=== PATIENT | female | born 1965 | race Caucasian/White ===

== ENCOUNTER → 2017-05-25 09:30 | Outpatient (CLI) | payer BC, SELFPAY ==
[2017-05-25 10:06] LABS: Amphetamine Urine VISTA NEGATIVE (<1000 ng/mL); Barbiturate Urine VISTA NEGATIVE (< 200 ng/mL); Benzodiazepine Urine VISTA NEGATIVE (< 200 ng/mL); Cocaine Urine VISTA NEGATIVE (< 300 ng/mL); Ecstacy Urine VISTA NEGATIVE (< 500 ng/mL); Methadone Urine VISTA NEGATIVE (< 300 ng/mL); PCP Urine VISTA NEGATIVE (< 25 ng/mL); THC Urine VISTA NEGATIVE (< 50 ng/mL); Vista UDS pH Range 5
== END ==
PROVIDERS: Family Provider Physician Assistant; PCP Physician Assistant; Visit Provider Anesthesiology Pain Medicine
DX: F11.20 Opioid dependence, uncomplicated (principal)
CPT/HCPCS: 80307

== ENCOUNTER 2017-12-16 09:06 | Inpatient (IN) | payer BC, SELFPAY ==
[2017-12-16] VITALS (12 sets, daily range): BP systolic 109–144; BP diastolic 70–106; PULSE 69–130; RESP 16–22; TEMP 36.6–36.7; O2SAT 95–99; BMI 44.6
--- NOTE | 2017-12-16 09:12 | ED.RN ---
PT PRE -REGISTERED. HEART RATE NOTED. PT TAKEN TO ROOM 6 EKG CALLED. THIS RN THEN COMPLETED TRIAGE INFORMATION
--- NOTE | 2017-12-16 09:23 | ED.DCSUM_ITS ---
- ER Visit Summary Date of Service: 12/16/17 Chief Complaint: Palpitations History of Present Illness: The patient is a 52 F 3 of A. fib, diet-controlled diabetes, hypertension, high cholesterol, chronic low back pain. Patient states she started having what she thought was palpitations around 3 AM. This continued and came in to the ER to be evaluated. She is having mild left-sided chest pain and mild shortness of breath. Physical Examination: Vital signs are stable except for heart rate is irregular in the 140s on the monitor looks like A. fib with RVR. Blood pressure 144/103. HEENT exam unremarkable. Neck nontender. Lungs clear to auscultation bilaterally. Heart irregularly irregular rate in 140s. Consistent with A. fib. No murmur. Abdomen soft nontender. She is moving all 4 extremities. They are neurovascularly intact. Calves are nontender without edema or cords. Neurologically she is awake alert with no focal motor deficits. He Test Results: CBC normal. BMP unremarkable with a normal troponin normal. Chest x-ray portable one review read both by the radiologist and myself shows no acute abnormality. EKG shows A. fib with RVR with a heart rate of 1 2. Emergency Department Course and Treatment: Patient with recurrent A. fib with RVR. Will be treated with IV labetalol. Treatment Plan: Patient treated with a second dose all. Her heart rates improving. She is also given pain medication for her chronic back pain. Disposition: Admit Impression: Recurrent atrial fibrillation with RVR History of diet-controlled diabetes, hypertension, high cholesterol\ Acute on chronic back pain This note was generated with [employer] ([employer]) dictation software. It may contain incorrect words, spelling, and punctuation that were not noted in review of the chart prior to signing ED Disposition - Plan for ED Patient: Chief Complaint: Palpitations Referrals: Sharmila Abrams PA [Primary Care Provider] -
[2017-12-16 09:50] LABS: Absolute Lymphocyte Count 6.48 X10^3/ul (0.83-4.51); Absolute Neutrophil Count 7.7 X10^3/uL (2.0-7.7); Basophil# 0.02 X10^3/uL; Basophil% 0.1 % (0-1); Eosinophil# 0.08 X10^3/uL; Eosinophils% 0.5 % (0-5); Hematocrit 45.5 % (37-47); Hemoglobin 14.6 g/dl (12.0-15.0); Lymphocyte # 6.48 X10^3/ul (4.0); Lymphocyte % 43.3 % (19-41); Mean Corp Hgb Conc 32.1 g/gl (32-36); Mean Corpuscular Hgb 27.9 pg (27.0-32.0); Mean Platelet Vol. 10.6 fl (6.2-12.0); Monocyte% 4.7 % (0-10); Neutrophil # 7.65 X10^3/uL (2.7-7.7); Neutrophil % 51.1 % (47-70); Platelet Count 320 K/mm3 (150-450); RBC Distribution Width CV 15.1 % (11.6-14.6); Red Blood Count 5.23 M/mm3 (4.2-5.4)
[2017-12-16 09:54] LABS: Differential Indicated SCAN CRITERIA MET; POSITIVE COUNT NO; POSITIVE DIFFERENTIAL YES; POSITIVE MORPHOLOGY NO
[2017-12-16 10:00] LABS: Anion Gap 7 (5-15); BUN 10 mg/dL (7-18); BUN/Creat Ratio 13.2 RATIO (10-20); Calcium,Total 9.4 mg/dL (8.5-10.1); Chloride 111 mmol/L (98-107); Creatinine, Serum 0.76 mg/dL (0.55-1.02); EST Glomerular Filtration Rate 86 mL/min (>60); Est Glom Filt Rate - Afr Amer 104 mL/min (>60); Estimated Creatinine Clearance 70.04 ml/min; Glucose 142 mg/dL (74-106); Potassium 3.6 mmol/L (3.5-5.1); Sodium Level 143 mmol/L (136-145)
[2017-12-16 10:14] LABS: Reactive Lymphocyte RARE
--- NOTE | 2017-12-16 10:49 | PCM.HP.STD ---
Problem List (1) A-fib Status: Acute Qualifiers: Atrial fibrillation type: paroxysmal Qualified Code(s): I48.0 - Paroxysmal atrial fibrillation (2) Hypertension Status: Chronic (3) DM type 2 (diabetes mellitus, type 2) Status: Acute Qualifiers: Diabetes mellitus half-way insulin use: without terminal supervisor use Diabetes mellitus complication status: with unspecified complications Qualified Code(s): E11.8 - Type 2 diabetes mellitus with unspecified complications (4) Chronic back pain Status: Chronic Qualifiers: Back pain location: low back pain Back pain laterality: bilateral Sciatica laterality: bilateral sciatica History of Present Illness Date of Admission: 12/16/17 Chief Complaint: Palpitations - 1 day The patient is a 52 year old F with past medical history of hypertension, paroxysmal atrial fibrillation, on Eliquis, hyperlipidemia, type II DM, chronic back pain with sciatica, follows with Dr. Flor in the outpatient who comes in with complaints of palpitations ongoing since this morning. Patient had noticed that her heart was racing. She was recently hospitalized in [facility] with A. fib with RVR and has been following up with cardiology and pulmonary. This felt very much like what happened to her in May 2017, she was diagnosed with A. fib. She had associated some chest discomfort, denied any dizziness but had shortness of breath on exertion. Denied any leg swelling orthopnea or PND. EKG done in the ED showed A. fib with RVR, vitals were stable. Labs were unremarkable except for elevated WBC count. Past Medical History Past Medical History (Chronic Problems): Chronic Problems Hypertension (Chronic) Chronic back pain (Chronic) Allergies latex Allergy (Verified 12/16/17 09:11) Anaphylaxis Home Medications: Ambulatory Orders Medication Instructions Recorded Losartan Potassium [Cozaar] 25 mg PO QHS 07/13/13 Albuterol Inhaler [Ventolin Hfa 1 - 2 puff INHALATION Q4H PRN PRN 12/16/17 (SP)] Apixaban [Eliquis] 5 mg PO BID 12/16/17 Atorvastatin Calcium 80 mg PO QHS 12/16/17 Budesonide/Formoterol 160/4.5 2 puff INHALATION DAILY 12/16/17 [Symbicort 160/4.5 Mcg Inhaler (SP)] Bupropion HCl [Wellbutrin Sr] 100 mg PO BID 12/16/17 Lorazepam [Ativan] 1 mg PO PRN PRN 12/16/17 Metoprolol Succinate [Toprol Xl] 25 mg PO DAILY 12/16/17 Pantoprazole Sodium [Protonix] 40 mg PO DAILY 12/16/17 Promethazine HCl 25 mg PO Q6H PRN PRN 12/16/17 Surgical History: appendectomy, hysterectomy, tonsillectomy, - - s/p 2 CS Psychiatric History: Anxiety, Depression [employer] History: ovarian cysts Lives: With Family Smoking Status: Current every day smoker Tobacco Use: Cigarettes Alcohol: None Drugs: None - *Family History Maternal History Items: Hypertension Paternal History Items: Diabetes, Heart Disease - had pacemaker, Hypertension Sibling History Items: Diabetes Review of Systems Constitutional: Denies: Anorexia, Chills, Fever, Weakness, Weight Change Eyes: Denies: Blurred vision, Cataracts, Conjunctivae Inflammation, Double vision HEENT: Denies: Difficulty Hearing, Difficulty Swallowing, Head Aches, Hearing Changes, Nasal bleeding, Nasal Congestion, Sinus Congestion, Sinus Drainage Cardiovascular: Reports: Chest Pain - in a certain spot, stabbing, Chest Tightness, Heaviness, Light Headedness. Denies: Claudication, Chest Pressure, Palpitations Respiratory: Reports: Cough, Shortness of breath at rest, Shortness of breath upon exertion. Denies: Hemoptysis, Sputum production Gastrointestinal: Reports: Nausea. Denies: Abdominal Pain, Constipation, Hematemesis, Hematochezia, Vomiting Genitourinary: Denies: Dysuria, Frequency, Incontinence Gynecological: Reports: - - postmenopausal. Denies: Breast symptoms Musculoskeletal: Reports: Joint stiffness, Joint swelling. Denies: Joint Pain, Joint Tenderness Skin: Denies: Rash, Wounds Neurological: Denies: Difficulty swallowing, Focal weakness, Numbness, Tingling Psychiatric: Denies: Anxiety, Depression, Homicidal Ideations, Suicidal Ideations Endocrine: Denies: Change in Body Habitus Hematologic/ Lymphatic: Denies: Easy Bruising, Easy Bleeding VTE Information - Inpt Only VTE Present on Admission: No VTE Pharm Prophylaxis ordered?: Yes Patient Problems: Active and Suspected Problems A-fib (Acute) DM type 2 (diabetes mellitus, type 2) (Acute) - Physical Exam General: Alert, Oriented x3, Cooperative, No apparent distress HEENT: Atraumatic, PERRLA, EOMI, Normocephalic Neck: Supple, No JVD, Negative Carotid Bruits Lungs: Clear to auscultation, Normal air movement Cardiovascular: Regular rate, Normal S1, No murmurs, Irregular Rate Abdomen: Bowel Sounds Present, Soft, Non Tender, Non-Distended, No Hepato-splenomegaly Extremities: No edema Skin: No rashes, No breakdown Musculoskeletal: No Tenderness to Palpation of Joints or Extremities Lymphatic: No Cervical, Supraclavicular, or Inguinal Adenopathy Neurological: Cranial nerves II-XII grossly intact, Neuro grossly intact Psych/Mental Status: Normal Affect, Appropriate Vital Signs Temp Pulse Resp BP Pulse Ox 98 F 119 H 16 128/94 H 99 12/16/17 09:09 12/16/17 09:24 12/16/17 09:24 12/16/17 09:24 12/16/17 09:24 Oxygen Flow Rate (L/min) 2 Oxygen Delivery Method Nasal Cannula Weight: 110.677 kg Body Mass Index (BMI) 44.6 Laboratory Tests Past 24 Hrs 12/16/17 12/16/17 09:30 09:30 WBC 15.0 H RBC 5.23 Hgb 14.6 Hct 45.5 MCV 87.0 MCH 27.9 MCHC 32.1 RDW 15.1 H RDW Differential 48.0 H Plt Count 320 MPV 10.6 Immature Gran % (Auto) 0.300 Neut % (Auto) 51.1 Lymph % (Auto) 43.3 H [place] % (Auto) 4.7 Eos % (Auto) 0.5 Baso % (Auto) 0.1 Absolute Neuts (auto) 7.7 Absolute Lymphs (auto) 6.48 H Total Counted Not Reportable Reactive Lymphocytes RARE Sodium 143 Potassium 3.6 Chloride 111 H Carbon Dioxide 25.0 Anion Gap 7 BUN 10 Creatinine 0.76 Estim Creat Clear Calc 70.04 Est GFR (MDRD) Af Amer 104 Est GFR (MDRD) Non-Af 86 BUN/Creatinine Ratio 13.2 Glucose 142 H Calcium 9.4 Troponin I < 0.015 Assessment/Plan All Active Problems A-fib (Acute) DM type 2 (diabetes mellitus, type 2) (Acute) 52 year old F with past medical history of hypertension, paroxysmal atrial fibrillation, on Eliquis, hyperlipidemia, type II DM, chronic back pain with sciatica, follows with Dr. Flor in the outpatient who comes in with complaints of palpitations ongoing since this morning. 1. A. fib with RVR patient with history of paroxysmal atrial fibrillation, on metoprolol 25 mg p.o. twice daily, given labetalol in the ED, Plan: Admit to PCU, continue on metoprolol, 50 mg p.o. twice daily, monitor on telemetry, obtain records of recent 2D echo, continue on Eliquis 2. Hypertension, controlled, continue home regimen 3. Type II DM, diet controlled, will put on insulin sliding scale with Accu-Cheks 4. Morbid obesity, BMI 44.6, diet exercise recommended 5. Acute on chronic low back pain, follows with Dr. Flor in the outpatient, will continue on oxycodone and morphine as needed 6. DVT prophylaxis -on Eliquis Code Visit OBSV E&M: 05711 Initial observation care L3
[2017-12-16] MEDS: HYDROmorphone 1 MG/ML Syringe IV ×2 (11:07→23:38)
[2017-12-16] MEDS: oxyCODONE 5 MG Tablet PO ×3 (11:56→20:43)
[2017-12-16] MEDS: Famotidine 20 MG Tablet PO (11:57)
[2017-12-16] MEDS: Metoprolol(XL)Succ 25 MG Tablet PO (12:40)
[2017-12-16 12:59] LABS: Thyroid Stim Hormone (TSH) 1.81 uIU/mL (0.358-3.74)
[2017-12-16] MEDS: Morphine 2 MG/ML Syringe 1 MG IV ×2 (14:18→18:14)
[2017-12-16] MEDS: 0.9% NaCl Peripheral Flush Adult/Peds IV ×4 (14:18→23:38)
[2017-12-16 16:31] LABS: Bedside Glucose 193 mg/dL (70-110)
[2017-12-16] MEDS: Insulin Lispro 100 UNIT/ML INSULN.PEN SQ (16:36)
[2017-12-16] MEDS: Ondansetron 4 MG/2 ML Vial IV (16:36)
[2017-12-16] MEDS: Budesonide Respules 0.5 MG/2 ML AMPUL.NEB. INHALATION (21:02)
[2017-12-16] MEDS: Atorvastatin Calcium 80 MG Tablet PO (21:46)
[2017-12-16] MEDS: buPROPion (SR) 100 MG TABLET.SA PO (21:46)
[2017-12-16] MEDS: Losartan Potassium 25 MG Tablet PO (21:46)
[2017-12-16] MEDS: APIXABAN 5 MG TABLET PO (21:46)
[2017-12-16 21:51] LABS: Bedside Glucose 114 mg/dL (70-110)
[2017-12-17] VITALS (8 sets, daily range): BP systolic 90–110; BP diastolic 64–72; PULSE 70–109; RESP 16–18; TEMP 36.6–36.7; O2SAT 95–97
[2017-12-17] MEDS: HYDROmorphone 1 MG/ML Syringe IV ×2 (03:12→09:20)
[2017-12-17] MEDS: 0.9% NaCl Peripheral Flush Adult/Peds IV (03:12)
[2017-12-17 06:57] LABS: BUN 13 mg/dL (7-18); Creatinine, Serum 0.85 mg/dL (0.55-1.02); Estimated Creatinine Clearance 62.62 ml/min; Glucose 144 mg/dL (74-106)
[2017-12-17 06:58] LABS: Anion Gap 13 (5-15); BUN/Creat Ratio 15.3 RATIO (10-20); Chloride 110 mmol/L (98-107); Cholesterol 165 mg/dL (200); EST Glomerular Filtration Rate 75 mL/min (>60); Est Glom Filt Rate - Afr Amer 91 mL/min (>60); High Density Lipoprotein 29 mg/dL; Potassium 4.2 mmol/L (3.5-5.1); Sodium Level 144 mmol/L (136-145); Triglycerides 281 mg/dL; Very Low Density Lipoprotein 56 mg/dL (5-40)
[2017-12-17 07:00] LABS: Bedside Glucose 154 mg/dL (70-110)
[2017-12-17] MEDS: Budesonide Respules 0.5 MG/2 ML AMPUL.NEB. INHALATION (07:25)
[2017-12-17] MEDS: APIXABAN 5 MG TABLET PO (08:08)
[2017-12-17] MEDS: Aspirin 81 MG TAB.CHEW PO (08:08)
[2017-12-17] MEDS: buPROPion (SR) 100 MG TABLET.SA PO (08:09)
[2017-12-17] MEDS: Pantoprazole Sodium 40 MG Tablet PO (08:09)
[2017-12-17 10:25] LABS: Hemoglobin A1c 6.7 % (4.2-6.3)
[2017-12-17] MEDS: Metoprolol(XL)Succ 50 MG Tablet PO (10:27)
[2017-12-17 11:30] LABS: Bedside Glucose 143 mg/dL (70-110)
--- NOTE | 2017-12-17 11:38 | PCM.DC ---
- Discharge Diagnoses Current Active Problems: Current Active and Chronic Problems A-fib (Acute) Hypertension (Chronic) DM type 2 (diabetes mellitus, type 2) (Acute) Chronic back pain (Chronic) Reason(s) for Visit for Discharge Instructions: Palpitations You will use the following diet at home:: Calorie/Carbohydrate Controlled (specify 1200, 1400, etc), Cardiac Your food should be the consistency of: Regular Your liquids should be the consistency of: Regular/Thin Discharge Activity: Return to Normal Activity Additional Instructions: Note the change to your metoprolol. Continue to use your breathing treatments. You are encouraged to complete your antibiotics as prescribed for bronchitis. Continue to use your incentive spirometer every 1-2 hours as needed. Allergies/Adverse Reactions: Allergies latex Allergy (Verified 12/16/17 09:11) Anaphylaxis Medications to take at Discharge Losartan Potassium [Cozaar] 25 mg PO QHS 07/13/13 Albuterol Inhaler [Ventolin Hfa] 1 - 2 puff INHALATION Q4H PRN PRN 12/16/17 Apixaban [Eliquis] 5 mg PO BID 12/16/17 Atorvastatin Calcium 80 mg PO QHS 12/16/17 Budesonide/Formoterol 160/4.5 [Symbicort 160/4.5 Mcg Inhaler (SP)] 2 puff INHALATION DAILY 12/16/17 Bupropion HCl [Wellbutrin Sr] 100 mg PO BID 12/16/17 Lorazepam [Ativan] 1 mg PO PRN PRN 12/16/17 Pantoprazole Sodium [Protonix] 40 mg PO DAILY 12/16/17 Promethazine HCl 25 mg PO Q6H PRN PRN 12/16/17 Metoprolol(XL)Succ [Toprol Xl (Beta Roxana)] 50 mg PO DAILY #30 tab 12/17/17 The following prescriptions were given: Metoprolol(XL)Succ [Toprol Xl (Beta Roxana)] 50 mg PO DAILY #30 tab Primary Care Physician: Sharmila Abrams PA [Primary Care Provider] - Please follow up with your Primary Care Physician in: within 2 weeks Test Results: Test results from this visit will be discussed in further detail at your follow-up appointment, if applicable. When: Follow-up with your motorcoach driver as scheduled Proposed Discharge Date: 12/17/17
--- NOTE | 2017-12-17 11:47 | CASEMGMT ---
Face to Face with patient for initial transition planning/care coordination assessment. ERIC FRIED introduced self and role at [facility], pt voices understanding and consents to assessment at this time. Pt is sitting up in bed in no distress at this time. Pt is A/O x4 at this time and answers all questions appropriately at this time. Care providers, pharmacy, and demographics verified. See attached link. Pt voices no further concerns/needs at this time. Advised pt to ask for CM if any further questions/concerns/needs arise, voice understanding. PLAN: [place] ERIC FRIED
--- NOTE | 2017-12-17 16:02 | PCM.DC.SUM ---
<Jimmie Anne - Last Filed: 12/17/17 16:02> Discharge Date and Diagnosis Date of Admission: 12/16/17 Date of Discharge: 12/17/17 - Primary Discharge Diagnosis Paroxysmal Afib with RVR HTN HLD Asthma Morbid obesity T2DM Acute on chronic low back pain - Secondary Discharge Diagnosis Chronic Problems Hypertension (Chronic) Chronic back pain (Chronic) Hospital Course and Treatment Imaging Results: RAD/Chest 1 View (Portable) IMPRESSION: No acute abnormality is seen. Operations: None Procedures: None Summary of Care Provided: Physical exam on day of discharge: General: Resting comfortably NAD Psych: A/Ox3 normal affect HEENT: PEARRLA AT ND Neck: Supple NT CV: RRR no m/t/r/g/h Resp: Right lower retana, faint rales Abd: [id number] Soft NT no guarding or rigidity, morbidly obese Ext: DP2+= no edema Skin: W/D normal turgor Lymph/Heme: No active bleeding or adenopathy Neuro: CN2-12 intact Hospital course: The patient is a 52 year old F with a hx of paroxysmal Afib on toprol and eliquis, seen by [place] [facility]ology, recently dx'd with acute bronchitis and has not started outpatient therapy, also with a hx of DMt2, chronic back pain, htn, morbid obesity, who was recently hospitalized for Afib with RVR at [email or web address], who subsequently presented to the ER with palpitations for 1 day. She was found to be in Afib with RVR which was successfully converted with lebatolol. Her toprol was increased to 50 and she was admitted to the PCU on tele. Eliquis was continued. TSH was normal. Troponin was negative. She remained stable overnight and was discharged the following morning to follow up with her provider contracting consultant in 1 week.She will continue the toprol at 50 mg qd. She had also failed to fill her z pack for bronchitis 2 days prior. With white count and faint rales on exam RLL (CXR neg) we advised filling and completing this treatment as infection could possibly explain the episode of RVR. She was advised to also f/u with her PCP. Shhe was DC'd home in stable condition. This patient was seen by Jimmie Anne PA-C under the supervision of Doctor Thompson. [] Discharge Diet: Low fat/ Low Cholesterol, 1800 Calorie Control Diet, 2000 mg Sodium Diet Discharge Activity: Return to Normal Activity Home Medications: Medications to take at Discharge Losartan Potassium [Cozaar] 25 mg PO QHS 07/13/13 Albuterol Inhaler [Ventolin Hfa] 1 - 2 puff INHALATION Q4H PRN PRN 12/16/17 Apixaban [Eliquis] 5 mg PO BID 12/16/17 Atorvastatin Calcium 80 mg PO QHS 12/16/17 Budesonide/Formoterol 160/4.5 [Symbicort 160/4.5 Mcg Inhaler (SP)] 2 puff INHALATION DAILY 12/16/17 Bupropion HCl [Wellbutrin Sr] 100 mg PO BID 12/16/17 Lorazepam [Ativan] 1 mg PO PRN PRN 12/16/17 Pantoprazole Sodium [Protonix] 40 mg PO DAILY 12/16/17 Promethazine HCl 25 mg PO Q6H PRN PRN 12/16/17 Metoprolol(XL)Succ [Toprol Xl (Beta Roxana)] 50 mg PO DAILY #30 tab 12/17/17 Following Prescrptions Were Given to Patient: Metoprolol(XL)Succ [Toprol Xl (Beta Roxana)] 50 mg PO DAILY #30 tab Primary Care Physician: Sharmila Abrams PA [Primary Care Provider] - Please follow up with your Primary Care Physician in: within 2 weeks When: Follow-up with your provider contracting consultant as scheduled Disposition: Home Minutes spent on discharge:: 35 Patient Condition:: Stable Medical Necessity - Tobacco Use Smoking Status: Current every day smoker Tobacco Use: Cigarettes Meaningful Use Info Meaningful Use Diagnoses (Choose all that apply): None applicable <Xena Thompson - Last Filed: 12/17/17 17:27> Discharge Date and Diagnosis - Secondary Discharge Diagnosis Chronic Problems Hypertension (Chronic) Chronic back pain (Chronic) Hospital Course and Treatment Summary of Care Provided: The patient is a 52 year old F [] Code Visit Inpatient E&M: 04627 Disch Hosp
== END 2017-12-17 12:37 | disposition home or self-care (01) | DRG 309 ==
LOC: ED 09:32 → PCU 10:55
PROVIDERS: Physician Assistant; Admitting Provider Internal Medicine; Emergency Provider Emergency Medicine; Family Provider Physician Assistant; PCP Physician Assistant; Visit Provider Internal Medicine
DX: I48.0 Paroxysmal atrial fibrillation (principal); Z68.41 Body mass index [BMI] 40.0-44.9, adult; Z79.01 Long term (current) use of anticoagulants; I10 Essential (primary) hypertension; E78.5 Hyperlipidemia, unspecified; J45.909 Unspecified asthma, uncomplicated; E66.01 Morbid (severe) obesity due to excess calories; E11.9 Type 2 diabetes mellitus without complications; G89.29 Other chronic pain; M54.5 Low back pain; F17.210 Nicotine dependence, cigarettes, uncomplicated
CPT/HCPCS: 36415; 71045; 80048; 80061; 82962; 83036; 84443; 84484; 85025; 93005; 94640; 99285; 99406; A4216; J2405

== ENCOUNTER → 2018-02-15 11:46 | Outpatient (CLI) | payer BC, SELFPAY ==
[2018-02-15 14:28] LABS: Amphetamine Urine VISTA NEGATIVE (<1000 ng/mL); Barbiturate Urine VISTA NEGATIVE (< 200 ng/mL); Benzodiazepine Urine VISTA NEGATIVE (< 200 ng/mL); Cocaine Urine VISTA NEGATIVE (< 300 ng/mL); Ecstacy Urine VISTA POSITIVE (< 500 ng/mL); Methadone Urine VISTA NEGATIVE (< 300 ng/mL); PCP Urine VISTA NEGATIVE (< 25 ng/mL); THC Urine VISTA NEGATIVE (< 50 ng/mL); Vista UDS pH Range 5
== END ==
PROVIDERS: Family Provider Physician Assistant; PCP Physician Assistant; Referring Provider Anesthesiology Pain Medicine; Visit Provider Anesthesiology Pain Medicine
DX: F11.20 Opioid dependence, uncomplicated (principal)
CPT/HCPCS: 80307

== ENCOUNTER → 2018-06-07 12:41 | Outpatient (CLI) | payer BC, SELFPAY ==
[2018-06-07 14:52] LABS: Amphetamine Urine VISTA NEGATIVE (<1000 ng/mL); Barbiturate Urine VISTA NEGATIVE (< 200 ng/mL); Benzodiazepine Urine VISTA NEGATIVE (< 200 ng/mL); Cocaine Urine VISTA NEGATIVE (< 300 ng/mL); Ecstacy Urine VISTA NEGATIVE (< 500 ng/mL); Methadone Urine VISTA NEGATIVE (< 300 ng/mL); PCP Urine VISTA NEGATIVE (< 25 ng/mL); THC Urine VISTA NEGATIVE (< 50 ng/mL); Vista UDS pH Range 5
== END ==
PROVIDERS: Family Provider Physician Assistant; PCP Physician Assistant; Referring Provider Anesthesiology Pain Medicine; Visit Provider Anesthesiology Pain Medicine
DX: F11.20 Opioid dependence, uncomplicated (principal)
CPT/HCPCS: 80307

== ENCOUNTER → 2018-07-26 10:28 | Outpatient (CLI) | payer BC, SELFPAY ==
[2017-12-16 11:31] VITALS: BMI 44.6
[2018-07-26 12:47] LABS: ALB/GLOB Ratio 0.9 RATIO (0.9-2.4); AST(SGOT) 16 U/L (15-37); Alanine Aminotransfer ALT/SGPT 26 U/L (13-56); Albumin, Serum 3.6 g/dL (3.2-5.0); Alkaline Phosphatase 113 U/L (45-117); Anion Gap 9 (5-15); BUN 13 mg/dL (7-18); BUN/Creat Ratio 17.2 RATIO (10-20); Calcium,Total 9.4 mg/dL (8.5-10.1); Chloride 104 mmol/L (98-107); Creatinine, Serum 0.76 mg/dL (0.55-1.02); EST Glomerular Filtration Rate 86 mL/min (>60); Est Glom Filt Rate - Afr Amer 104 mL/min (>60); Globulin 3.9 g/dL (2.2-4.2); Glucose 135 mg/dL (74-106); Potassium 4.1 mmol/L (3.5-5.1); Protein, Total 7.5 g/dL (6.4-8.2); Sodium Level 138 mmol/L (136-145)
[2018-07-26 13:54] LABS: Absolute Neutrophil Count 7.6 X10^3/uL (2.0-7.7); Basophil# 0.01 X10^3/uL; Basophil% 0.1 % (0-1); Eosinophil# 0.06 X10^3/uL; Eosinophils% 0.5 % (0-5); Hematocrit 43.6 % (37-47); Hemoglobin 14.1 g/dl (12.0-15.0); Lymphocyte % 31.7 % (19-41); Mean Corp Hgb Conc 32.3 g/gl (32-36); Mean Corpuscular Hgb 28.4 pg (27.0-32.0); Mean Corpuscular Volume 87.7 fL (81-99); Mean Platelet Vol. 10.9 fl (6.2-12.0); Monocyte# 0.69 X10^3/uL; Monocyte% 5.6 % (0-10); Neutrophil # 7.58 X10^3/uL (2.7-7.7); Neutrophil % 61.7 % (47-70); Platelet Count 337 K/mm3 (150-450); RBC Distribution Width CV 15.4 % (11.6-14.6); RBC Distribution Width SD 48.9 fl (35.1-43.9); Red Blood Count 4.97 M/mm3 (4.2-5.4); White Blood Count 12.3 K/mm3 (4.4-11.0)
[2018-07-26 14:13] LABS: POSITIVE COUNT NO; POSITIVE DIFFERENTIAL NO; POSITIVE MORPHOLOGY NO
== END ==
PROVIDERS: Family Provider Physician Assistant; PCP Physician Assistant; Referring Provider Internal Medicine Rheumatology; Visit Provider Internal Medicine Rheumatology
DX: M06.4 Inflammatory polyarthropathy (principal); M79.7 Fibromyalgia; K21.9 Gastro-esophageal reflux disease without esophagitis; F41.9 Anxiety disorder, unspecified; F32.89 Other specified depressive episodes; I48.91 Unspecified atrial fibrillation; J45.909 Unspecified asthma, uncomplicated; I10 Essential (primary) hypertension; E78.5 Hyperlipidemia, unspecified; G47.33 Obstructive sleep apnea (adult) (pediatric); Z79.899 Other long term (current) drug therapy
CPT/HCPCS: 36415; 80053; 85025

== ENCOUNTER → 2019-01-03 10:14 | Outpatient (CLI) | payer BC, SELFPAY ==
[2017-12-16 11:31] VITALS: BMI 44.6
[2019-01-03 12:27] LABS: Absolute Lymphocyte Count 4.43 X10^3/uL (0.83-4.51); Absolute Neutrophil Count 6.5 X10^3/uL (2.0-7.7); Basophil# 0.03 X10^3/uL; Basophil% 0.3 % (0-1); Eosinophil# 0.12 X10^3/uL; Hematocrit 47.3 % (37-47); Hemoglobin 14.9 g/dL (12.0-15.0); Lymphocyte # 4.43 X10^3/ul (4.0); Lymphocyte % 38.1 % (19-41); Mean Corp Hgb Conc 31.5 g/dL (32-36); Mean Corpuscular Hgb 29.3 pg (27.0-32.0); Mean Corpuscular Volume 92.9 fL (81-99); Mean Platelet Vol. 10.8 fl (6.2-12.0); Monocyte# 0.46 X10^3/uL; NRBC Flagged by Analyzer 0 % (0-5); Neutrophil # 6.54 X10^3/uL (2.7-7.7); Neutrophil % 56.1 % (47-70); Platelet Count 308 K/mm3 (150-450); RBC Distribution Width CV 18.2 % (11.6-14.6); RBC Distribution Width SD 60.8 fl (35.1-43.9); Red Blood Count 5.09 M/mm3 (4.2-5.4); White Blood Count 11.6 K/mm3 (4.4-11.0)
[2019-01-03 13:12] LABS: ALB/GLOB Ratio 0.9 RATIO (0.9-2.4); AST(SGOT) 18 U/L (15-37); Alanine Aminotransfer ALT/SGPT 38 U/L (13-56); Albumin, Serum 3.4 g/dL (3.2-5.0); Alkaline Phosphatase 115 U/L (45-117); Anion Gap 4 (5-15); BUN 8 mg/dL (7-18); BUN/Creat Ratio 11.3 RATIO (10-20); Calcium,Total 9.4 mg/dL (8.5-10.1); Chloride 108 mmol/L (98-107); Creatinine, Serum 0.71 mg/dL (0.55-1.02); EST Glomerular Filtration Rate 93 mL/min (>60); Est Glom Filt Rate - Afr Amer 112 mL/min (>60); Globulin 3.8 g/dL (2.2-4.2); Glucose 123 mg/dL (74-106); Potassium 4.2 mmol/L (3.5-5.1); Protein, Total 7.2 g/dL (6.4-8.2); Sodium Level 142 mmol/L (136-145)
== END ==
PROVIDERS: Family Provider Family Medicine; PCP Family Medicine; Referring Provider Internal Medicine Rheumatology; Visit Provider Internal Medicine Rheumatology
DX: M06.4 Inflammatory polyarthropathy (principal); Z79.899 Other long term (current) drug therapy; M79.7 Fibromyalgia; K21.9 Gastro-esophageal reflux disease without esophagitis; F41.9 Anxiety disorder, unspecified; F32.89 Other specified depressive episodes; I48.91 Unspecified atrial fibrillation; J45.909 Unspecified asthma, uncomplicated; I10 Essential (primary) hypertension; E78.5 Hyperlipidemia, unspecified; G47.33 Obstructive sleep apnea (adult) (pediatric)
CPT/HCPCS: 36415; 80053; 85025

== ENCOUNTER 2019-01-21 11:13 | Emergency (ER) | payer BC, SELFPAY ==
[2019-01-21 11:15] VITALS: BP 121/72; PULSE 71; RESP 16; TEMP 36.7; BMI 44.8
--- NOTE | 2019-01-21 11:39 | ED.DCSUM_ITS ---
History of Present Illness <Louis Croft - Last Filed: 01/21/19 12:47> Informant: Patient Onset: Today Narrative: Patient presents to the ED with sudden onset of nausea and vomiting that started about 2 hours ago. She states she has vomited approximately 5 times. She does have a history of chronic nausea, however nothing this severe. She has been prescribed Phenergan in the past but states she is out of her prescription. She also reports this intermittent 1 month history of right upper abdominal pain/flank pain. She denies any changes in bowels. <Keily Garcia - Last Filed: 01/21/19 13:58> Chief Complaint: Abd Pain Past Medical History <Louis Croft - Last Filed: 01/21/19 12:47> Surgical History: appendectomy, hysterectomy, tonsillectomy, - - s/p 2 CS Smoking Status: Never smoker - Family History Maternal Family History: Reports: Hypertension Paternal Family History: Reports: Diabetes, Heart Disease - had pacemaker, Hypertension Sibling Family History: Reports: Diabetes <Keily Garcia - Last Filed: 01/21/19 13:58> - Allergies and Home Meds Allergies/Adverse Reactions: Allergies latex Allergy (Verified 01/21/19 11:19) Anaphylaxis metformin Adverse Reaction (Verified 01/21/19 11:19) Diarrhea Primary Care Physician: Trenton Crowell MD [Primary Care Provider] - Physical Exam Vital Signs/Narrative: Vital Signs Temp Pulse Resp BP Pulse Ox 01/21/19 12:25 70 145/70 H 98 01/21/19 11:15 98.0 F 71 16 121/72 H <CroftLouis - Last Filed: 01/21/19 12:47> Vital Signs/Narrative: Vital Signs Temp Pulse Resp BP 01/21/19 11:15 98.0 F 71 16 121/72 H <Keily Garcia - Last Filed: 01/21/19 13:58> Diagnostic/Tx/Re-eval - Medical Decision Making This patient with our physician fleet administrative assistant. Middle-aged female with right flank pain and associated nausea and vomiting. Patient has a recurrent history of this this specific episode is been going on for more than a month. She is had several ultrasounds of her right upper q uadrant showing no abnormalities of her gallbladder and even an unremarkable HIDA scan up according to her. Exam vital signs are stable afebrile. She is in no distress. HEENT exam shows mildly dry mucous membranes. Lungs clear to auscultation. Heart regular rhythm no murmur. Abdomen is soft there is mild right upper quadrant and right flank tenderness. There is no ecchymosis or bruising. No signs of obstruction. Right lower quadrant unremarkable. No hernias or masses positive bowel sounds. Back there is mild right flank pain tenderness. She is moving all 4 extremities. Skin is unremarkable. Patient with right flank pain. She is chronically elevated white count since why she is currently seeing tank refinisher. Today's white count is 19.8. In light that she is had multiple prior ultrasounds reviewed she is a CT of the abdomen and pelvis with IV contrast. Her electrolytes, liver enzymes and lipase are all unremarkable. Impression: Right flank pain of uncertain etiology Nausea and vomiting <Louis Croft - Last Filed: 01/21/19 12:47> - Medical Decision Making She presents to the ED with right flank pain, nausea, vomiting that started today. The flank pain has been an intermittent issue for her for the last month. She appears well and nontoxic. Vital signs stable. She has had extensive work-up done of her gallbladder including multiple ultrasounds and HIDA scan. She was given IV fluids, morphine, and Phenergan for symptomatic relief. Laboratory studies including CBC, CMP, lipase, and urinalysis are unremarkable other than a leukocytosis of 19.8. She states that she does follow with a tank refinisher regarding this elevated white count. CT abdomen/pelvis with IV contrast shows no acute abnormalities. At this time, I think it is safe for the patient be discharged home. She was given a prescription for Zofran. She does have an appointment with her PCP next week. She will continue her chronic pain medicine regimen. She was educated on signs/symptoms to return to the ED. Impression: Right flank pain. Nausea and vomiting. Disposition: Home stable <Keily Garcia - Last Filed: 01/21/19 13:58> ED Disposition <Louis Croft - Last Filed: 01/21/19 12:47> <Keily Garcia - Last Filed: 01/21/19 13:58> - Plan for ED Patient: Disposition: Home or Assisted Living Diagnosis: Nausea & vomiting, Abdominal pain Instructions: ABDOMINAL PAIN, Unknown Cause, (Female), VOMITING (8y-Adult) Prescriptions: Ondansetron HCl [Zofran] 4 mg PO Q8H PRN PRN #20 tab PRN Reason: Nausea Prescription Printed Referrals: Trenton Crowell MD [Primary Care Provider] -
[2019-01-21] MEDS: Morphine 4 MG/ML Syringe IV (12:14)
[2019-01-21] MEDS: Ondansetron 4 MG/2 ML Vial IV (12:14)
[2019-01-21 12:18] LABS: ALB/GLOB Ratio 0.8 RATIO (0.9-2.4); AST(SGOT) 12 U/L (15-37); Alanine Aminotransfer ALT/SGPT 22 U/L (13-56); Albumin, Serum 3.2 g/dL (3.2-5.0); Alkaline Phosphatase 112 U/L (45-117); Anion Gap 6 (5-15); BUN 11 mg/dL (7-18); BUN/Creat Ratio 15.2 RATIO (10-20); Calcium,Total 9.5 mg/dL (8.5-10.1); Chloride 105 mmol/L (98-107); Creatinine, Serum 0.73 mg/dL (0.55-1.02); EST Glomerular Filtration Rate 90 mL/min (>60); Est Glom Filt Rate - Afr Amer 109 mL/min (>60); Estimated Creatinine Clearance 72.11 ml/min; Globulin 4.1 g/dL (2.2-4.2); Glucose 222 mg/dL (74-106); Lipase 44 U/L (73-393); Potassium 3.8 mmol/L (3.5-5.1); Protein, Total 7.3 g/dL (6.4-8.2); Sodium Level 138 mmol/L (136-145)
[2019-01-21 12:19] LABS: Absolute Lymphocyte Count 2.73 X10^3/uL (0.83-4.51); Absolute Neutrophil Count 16.3 X10^3/uL (2.0-7.7); Basophil# 0.03 X10^3/uL; Basophil% 0.2 % (0-1); Eosinophil# 0.01 X10^3/uL; Eosinophils% 0.1 % (0-5); Hemoglobin 14.4 g/dL (12.0-15.0); Lymphocyte # 2.73 X10^3/ul (4.0); Lymphocyte % 13.8 % (19-41); Mean Corpuscular Hgb 29.6 pg (27.0-32.0); Mean Corpuscular Volume 92.4 fL (81-99); Mean Platelet Vol. 10.7 fl (6.2-12.0); Monocyte# 0.62 X10^3/uL; Monocyte% 3.1 % (0-10); NRBC Flagged by Analyzer 0 % (0-5); Neutrophil # 16.28 X10^3/uL (2.7-7.7); Neutrophil % 82.1 % (47-70); Platelet Count 300 K/mm3 (150-450); RBC Distribution Width CV 16.6 % (11.6-14.6); RBC Distribution Width SD 56.3 fl (35.1-43.9); Red Blood Count 4.87 M/mm3 (4.2-5.4); White Blood Count 19.8 K/mm3 (4.4-11.0)
[2019-01-21 12:25] VITALS: BP 145/70; PULSE 70; O2SAT 98
[2019-01-21] MEDS: 0.9% Normal Saline 1,000 ML 1000 ML IV (12:25)
[2019-01-21 12:36] LABS: Bacteria 0 SEEN /hpf (None Seen); Mucous, Urine 0 SEEN /hpf (<or=2+); Red Blood Cells-Urine 0 SEEN /hpf (0-5); Squamous Epithelial Cells - UA 0 SEEN /hpf (5-10); White Blood Cells 0 SEEN /hpf (0-5)
--- NOTE | 2019-01-21 12:44 | CT_ITS ---
STUDY: CT ABDOMEN AND PELVIS WITH CONTRAST REASON FOR EXAM: Female, 53 years old. Right-sided flank pain RADIATION DOSAGE (If Supplied By Facility): CTDIvol = ( 23.71 ) mGy, DLP = ( 1212.86 ) mGycm TECHNIQUE: Transaxial images were obtained from the dome of the diaphragm to the symphysis pubis without oral contrast. IV Isovue 300 100mL was administered. Sagittal and coronal images were reconstructed. Individualized dose optimization techniques were used for this CT. COMPARISON: 2009 FINDINGS: The visualized lung bases are unremarkable. The visualized portions of the heart are within normal limits. There is decreased attenuation of the liver consistent with steatosis. Normal gallbladder and extrahepatic biliary system. Normal spleen. Normal pancreas. Normal bilateral adrenal glands. Normal right kidney. Normal left kidney. Normal visualized stomach. Normal small intestine. Normal colon. There are surgical clips in the region of the appendix consistent with a prior appendectomy. There is diffuse atherosclerotic calcification of the abdominal aorta, without a demonstrated aneurysm. Normal inferior vena cava. Normal retroperitoneum. Normal urinary bladder. Normal abdominal wall. There are diffuse degenerative changes of the visualized lumbar spine, and pelvis. CT/Abdomen/Pelvis W IV Cont ONLY IMPRESSION: Fatty liver, no discrete lesion No CT evidence of acute inflammatory process No free intraperitoneal fluid, air, or suspicious adenopathy Electronically Signed: Kolby Sparrow MD at 13:46 EDT , Service support ,
[2019-01-21 12:46] LABS: Color, Urine Yellow (Yellow); Glucose, Dipstick Normal (Normal); Ketone-Dipstick Negative (Negative); Leukocyte Esterase-Dipstick Negative /ul (Negative); Nitrite-Dipstick Negative (Negative); Occult Blood-Urine Negative /ul (Negative); Protein-Dipstick Negative (Negative); Urine Bilirubin Dipstick Negative (Negative); Urine Clarity Clear (Clear); Urine Urobilinogen Normal (Normal)
[2019-01-21 12:58] VITALS: TEMP 36.8
[2019-01-21 14:09] VITALS: BP 131/74; BP 132/70; BP 151/94; PULSE 80; PULSE 82; RESP 14; RESP 15; O2SAT 98
== END 2019-01-21 14:11 | disposition home or self-care (01) ==
PROVIDERS: Emergency Provider Physician Assistant; Family Provider Family Medicine; PCP Family Medicine
DX: R11.2 Nausea with vomiting, unspecified (principal); R10.11 Right upper quadrant pain; R10.9 Unspecified abdominal pain
CPT/HCPCS: 74177; 80053; 81001; 83690; 85025; 96361; 96374; 96375; 99285; J7030; Q9967; A4216; J2405

== ENCOUNTER → 2019-03-30 09:52 | Outpatient (CLI) | payer BC, SELFPAY ==
--- NOTE | 2019-03-30 11:50 | RAD_ITS ---
STUDY: X-RAY CHEST REASON FOR EXAM: Female, 53 years old. STARTING NEW MEDS, NO CURRENT COMPLAINTS, HX AFIB TECHNIQUE: PA and lateral views of the chest. COMPARISON: December 16, 2017 FINDINGS: The lungs are clear and expanded. There is no demonstrated pleural abnormality. Normal size heart. Normal mediastinum and itzel. Normal visualized pulmonary arteries. Normal visualized aortic arch and descending thoracic aorta. Normal visualized thoracic spine. Normal visualized ribs, clavicles, and shoulders. There is no demonstrated abnormality of the visualized soft tissue structures of the upper abdomen. RAD/Chest PA and Lateral IMPRESSION: Normal x-ray examination of the chest. Electronically Signed: Yuliet Tobar MD at 13:50 EST , Service support ,
[2019-03-30 12:45] LABS: Basophil# 0.04 X10^3/uL; Basophil% 0.3 % (0-1); Eosinophil# 0.09 X10^3/uL; Eosinophils% 0.6 % (0-5); Hematocrit 46.3 % (37-47); Lymphocyte % 29.6 % (19-41); Mean Corp Hgb Conc 32.4 g/dL (32-36); Mean Corpuscular Hgb 30.4 pg (27.0-32.0); Mean Corpuscular Volume 93.7 fL (81-99); Mean Platelet Vol. 10.9 fl (6.2-12.0); Monocyte# 0.72 X10^3/uL; Monocyte% 4.6 % (0-10); NRBC Flagged by Analyzer 0 % (0-5); Neutrophil # 9.98 X10^3/uL (2.7-7.7); Neutrophil % 64.3 % (47-70); Platelet Count 325 K/mm3 (150-450); RBC Distribution Width CV 15.6 % (11.6-14.6); RBC Distribution Width SD 53.7 fl (35.1-43.9); Red Blood Count 4.94 M/mm3 (4.2-5.4); White Blood Count 15.5 K/mm3 (4.4-11.0)
[2019-03-30 13:15] LABS: ALB/GLOB Ratio 0.8 RATIO (0.9-2.4); AST(SGOT) 15 U/L (15-37); Alanine Aminotransfer ALT/SGPT 43 U/L (13-56); Albumin, Serum 3.4 g/dL (3.2-5.0); Alkaline Phosphatase 104 U/L (45-117); Anion Gap 7 (5-15); BUN 12 mg/dL (7-18); BUN/Creat Ratio 18.2 RATIO (10-20); Calcium,Total 9.6 mg/dL (8.5-10.1); Chloride 108 mmol/L (98-107); Creatinine, Serum 0.66 mg/dL (0.55-1.02); EST Glomerular Filtration Rate 100 mL/min (>60); Est Glom Filt Rate - Afr Amer 121 mL/min (>60); Globulin 4.1 g/dL (2.2-4.2); Glucose 135 mg/dL (74-106); Protein, Total 7.5 g/dL (6.4-8.2); Sodium Level 140 mmol/L (136-145)
[2019-04-02 05:06] LABS: QNTFERON TB Mitogen Value > 10.00 IU/mL (.); QNTFERON TB Nil Value 0.06 IU/mL (.); QNTFERON TB1+ Ag Value 0.06 IU/mL (.); QNTFERON TB2+ Ag Value 0.04 IU/mL (.)
[2019-04-04 20:20] LABS: QNTIFERON TB Positive Criteria Negative (Negative)
== END ==
PROVIDERS: Family Provider Family Medicine; PCP Family Medicine; Referring Provider Internal Medicine Rheumatology; Visit Provider Internal Medicine Rheumatology
DX: M06.09 Rheumatoid arthritis without rheumatoid factor, multiple sites (principal); Z79.899 Other long term (current) drug therapy; M79.7 Fibromyalgia; K21.9 Gastro-esophageal reflux disease without esophagitis; F41.9 Anxiety disorder, unspecified; F32.89 Other specified depressive episodes; I48.91 Unspecified atrial fibrillation; J45.909 Unspecified asthma, uncomplicated; I10 Essential (primary) hypertension; E78.5 Hyperlipidemia, unspecified; G47.33 Obstructive sleep apnea (adult) (pediatric)
CPT/HCPCS: 36415; 71046; 80053; 85025; 86480

== ENCOUNTER 2019-04-07 11:19 | Emergency (ER) | payer BC, SELFPAY ==
[2019-04-07 11:22] VITALS: BP 123/86; PULSE 66; RESP 18; TEMP 36.6; O2SAT 98; BMI 44.8
--- NOTE | 2019-04-07 11:55 | RAD_ITS ---
STUDY: X-RAY - LEFT TIBIA AND FIBULA REASON FOR EXAM: Pain, fall. TECHNIQUE: 2 view(s) of the tibia and fibula were obtained. COMPARISON: None. FINDINGS: Normal visualized tibia. Normal visualized fibula. The soft tissue structures are unremarkable. RAD/Tibia & Fibula 2 Views IMPRESSION: Normal x-ray examination of the left tibia and fibula. Electronically Signed: Zach Donovan MD at 12:38 EST Tel , Service support ,
--- NOTE | 2019-04-07 11:55 | RAD_ITS ---
STUDY: X-RAY - LEFT KNEE REASON FOR EXAM: Pain, fall. TECHNIQUE: 2 view(s) of the knee. COMPARISON: None. FINDINGS: Normal visualized distal femur. Normal visualized proximal tibia and fibula. Normal proximal tibiofibular articulation. Normal medial femorotibial compartment. Normal lateral femorotibial compartment. Normal patellofemoral articulation. The soft tissue structures are unremarkable. RAD/Knee 1 or 2 Views IMPRESSION: Normal x-ray examination of the left knee. Electronically Signed: Zach Donovan MD at 12:40 EST Tel , Service support ,
--- NOTE | 2019-04-07 11:56 | ED.VISSUMM ---
- ER Visit Summary Date of Service: 04/07/19 Chief Complaint: Tripped and fell injuring left knee and lower leg History of Present Illness: The patient is a 53 F for rheumatoid arthritis and A. fib on Eliquis. Patient states they are walking into the [facility] she tripped and fell over a small child that I believe is her grand daughter. And when she landed on the floor she landed on her left knee and lower leg. Complaining of pain. She was brought in by squad in an air splint of the left lower leg. She denies hitting her head. She denies any LOC. She denies any chest back or abdominal pain this new. Physical Examination: Middle-aged female planing of pain vital signs are stable and afebrile. H EENT exam atraumatic. Pupils round react light. No signs of trauma to face or scalp. C-spine nontender. Trachea midline. Lungs clear to auscultation bilaterally. Chest were nontender. Heart A. fib rate about 70 no murmur. Abdomen soft nontender no bowel sounds no peritoneal signs. Pelvic girdle intact. Extremities both upper extremities right lower extremity nontender full range of motion no deformity. Normal motor strength. Her left lower extremity left hip and femur are nontender left knee has mild tenderness minimal swelling. Left lower leg is also tender. No deformity. Left foot has normal DP pulse. Normal touch sensation. Neurologically she is awake and alert. She has limited range of motion the left knee and ankle due to pain. There is no gross bony deformity. Test Results: Left knee x-ray 2 views read by myself shows no acute abnormality. No fracture. No dislocation. Read by myself. Left tib-fib x-ray 3 views read by myself shows no acute abnormality read by myself. Emergency Department Course and Treatment: Fall with knee and lower leg pain. X-rays to be obtained. She did not hit her head. Patient was given 1 [place] for pain. Repeat exam the patient is doing well at 12:43 PM. Repeat knee exam no change. We did go over her x-rays. Treatment Plan: Pt. is under pain management and will use her pain meds at home. Crutches. Follow-up. Disposition: Discharge Impression: Acute fall left knee contusion. This note was generated with Qnect, llcation software. It may contain incorrect words, spelling, and punctuation that were not noted in review of the chart prior to signing ED Disposition - Plan for ED Patient: Disposition: Home or Assisted Living Instructions: CONTUSION, Lower Extremity Prescriptions: Hydrocodone/Acetaminophen [[place] 5-325 Tablet] 1 ea PO 4X/DAY PRN PRN 7 Days #14 tab PRN Reason: Pain Or Fever Prescription Printed Referrals: Trenton Crowell MD [Primary Care Provider] - 3-5 Days if not improving Additional Instructions: Left leg decrease pain and swelling. [place] for pain. Otherwise Tylenol. Use crutches and increase weightbearing as tolerated. If not improving or need to follow-up with your doctor for further evaluation. Your x-rays of your knee and left lower leg were unremarkable today.
[2019-04-07] MEDS: HYDROcodone Bitartrate/Apap 5/325 Tablet PO (12:16)
--- NOTE | 2019-04-07 12:46 | DCINST.ED_ITS ---
ED Disposition - Plan for ED Patient: Disposition: Home or Assisted Living Instructions: CONTUSION, Lower Extremity Prescriptions: Hydrocodone/Acetaminophen [[place] 5-325 Tablet] 1 ea PO 4X/DAY PRN PRN 7 Days #14 tab PRN Reason: Pain Or Fever Prescription Printed Referrals: Trenton Crowell MD [Primary Care Provider] - 3-5 Days if not improving Additional Instructions: Left leg decrease pain and swelling. [place] for pain. Otherwise Tylenol. Use crutches and increase weightbearing as tolerated. If not improving or need to follow-up with your doctor for further evaluation. Your x-rays of your knee and left lower leg were unremarkable today.
== END 2019-04-07 13:06 | disposition home or self-care (01) ==
PROVIDERS: Emergency Provider Emergency Medicine; Family Provider Family Medicine; PCP Family Medicine
DX: S80.02XA Contusion of left knee, initial encounter (principal); W01.0XXA Fall on same level from slipping, tripping and stumbling without subsequent striking against object, initial encounter; Y93.01 Activity, walking, marching and hiking; Y92.9 Unspecified place or not applicable; M06.9 Rheumatoid arthritis, unspecified; I48.91 Unspecified atrial fibrillation; E11.9 Type 2 diabetes mellitus without complications; E78.00 Pure hypercholesterolemia, unspecified; I10 Essential (primary) hypertension; Z79.01 Long term (current) use of anticoagulants; Z79.899 Other long term (current) drug therapy; Z72.0 Tobacco use
CPT/HCPCS: 73560; 73590; 99285

== ENCOUNTER → 2019-06-07 11:33 | Outpatient (CLI) | payer BC, SELFPAY ==
[2019-06-07 12:28] LABS: Amphetamine Urine VISTA NEGATIVE (<1000 ng/mL); Barbiturate Urine VISTA NEGATIVE (< 200 ng/mL); Benzodiazepine Urine VISTA NEGATIVE (< 200 ng/mL); Cocaine Urine VISTA NEGATIVE (< 300 ng/mL); Ecstacy Urine VISTA NEGATIVE (< 500 ng/mL); Methadone Urine VISTA NEGATIVE (< 300 ng/mL); PCP Urine VISTA NEGATIVE (< 25 ng/mL); THC Urine VISTA NEGATIVE (< 50 ng/mL); Vista UDS pH Range 5
== END ==
PROVIDERS: PCP Family Medicine; Referring Provider Anesthesiology Pain Medicine; Visit Provider Anesthesiology Pain Medicine
DX: F11.20 Opioid dependence, uncomplicated (principal)
CPT/HCPCS: 80307

== ENCOUNTER → 2019-08-31 12:19 | Outpatient (CLI) | payer BC, SELFPAY ==
[2019-08-31 15:29] LABS: Absolute Lymphocyte Count 4.58 X10^3/uL (0.83-4.51); Absolute Neutrophil Count 8.1 X10^3/uL (2.0-7.7); Basophil# 0.04 X10^3/uL; Basophil% 0.3 % (0-1); Eosinophil# 0.07 X10^3/uL; Eosinophils% 0.5 % (0-5); Hematocrit 51.6 % (37-47); Hemoglobin 16.5 g/dL (12.0-15.0); Lymphocyte # 4.58 X10^3/ul (4.0); Mean Corpuscular Hgb 31.1 pg (27.0-32.0); Mean Corpuscular Volume 97.2 fL (81-99); Mean Platelet Vol. 11.1 fl (6.2-12.0); Monocyte# 0.63 X10^3/uL; Monocyte% 4.7 % (0-10); NRBC Flagged by Analyzer 0 % (0-5); Neutrophil # 8.06 X10^3/uL (2.7-7.7); Neutrophil % 59.8 % (47-70); Platelet Count 322 K/mm3 (150-450); Red Blood Count 5.31 M/mm3 (4.2-5.4); White Blood Count 13.5 K/mm3 (4.4-11.0)
[2019-08-31 15:56] LABS: ALB/GLOB Ratio 0.9 RATIO (0.9-2.4); AST(SGOT) 18 U/L (15-37); Alanine Aminotransfer ALT/SGPT 45 U/L (13-56); Albumin, Serum 3.5 g/dL (3.2-5.0); Alkaline Phosphatase 106 U/L (45-117); Anion Gap 7 (5-15); BUN 8 mg/dL (7-18); BUN/Creat Ratio 13.5 RATIO (10-20); Calcium,Total 9.8 mg/dL (8.5-10.1); Chloride 103 mmol/L (98-107); Creatinine, Serum 0.59 mg/dL (0.55-1.02); EST Glomerular Filtration Rate 113 mL/min (>60); Est Glom Filt Rate - Afr Amer 137 mL/min (>60); Globulin 4.1 g/dL (2.2-4.2); Glucose 135 mg/dL (74-106); Potassium 3.9 mmol/L (3.5-5.1); Protein, Total 7.6 g/dL (6.4-8.2); Sodium Level 138 mmol/L (136-145)
== END ==
PROVIDERS: PCP Family Medicine; Referring Provider Internal Medicine Rheumatology; Visit Provider Internal Medicine Rheumatology
DX: M06.09 Rheumatoid arthritis without rheumatoid factor, multiple sites (principal); Z79.899 Other long term (current) drug therapy; M79.7 Fibromyalgia; K21.9 Gastro-esophageal reflux disease without esophagitis; F41.9 Anxiety disorder, unspecified; F32.89 Other specified depressive episodes; I48.91 Unspecified atrial fibrillation; J45.909 Unspecified asthma, uncomplicated; I10 Essential (primary) hypertension; E78.5 Hyperlipidemia, unspecified; G47.33 Obstructive sleep apnea (adult) (pediatric)
CPT/HCPCS: 36415; 80053; 85025

== ENCOUNTER → 2019-11-02 09:46 | Outpatient (CLI) | payer BC, SELFPAY ==
[2019-11-02 12:45] LABS: Absolute Lymphocyte Count 5.15 X10^3/uL (0.83-4.51); Absolute Neutrophil Count 6.2 X10^3/uL (2.0-7.7); Basophil# 0.03 X10^3/uL; Basophil% 0.2 % (0-1); Eosinophil# 0.11 X10^3/uL; Eosinophils% 0.9 % (0-5); Hematocrit 47.9 % (37-47); Hemoglobin 15.2 g/dL (12.0-15.0); Lymphocyte # 5.15 X10^3/ul (4.0); Lymphocyte % 42.8 % (19-41); Mean Corp Hgb Conc 31.7 g/dL (32-36); Mean Corpuscular Hgb 31.1 pg (27.0-32.0); Mean Corpuscular Volume 98.2 fL (81-99); Monocyte# 0.51 X10^3/uL; Monocyte% 4.2 % (0-10); NRBC Flagged by Analyzer 0 % (0-5); Neutrophil # 6.17 X10^3/uL (2.7-7.7); Neutrophil % 51.4 % (47-70); POSITIVE DIFFERENTIAL YES; Platelet Count 295 K/mm3 (150-450); RBC Distribution Width CV 13.5 % (11.6-14.6); RBC Distribution Width SD 49.1 fl (35.1-43.9); Red Blood Count 4.88 M/mm3 (4.2-5.4)
[2019-11-02 12:58] LABS: Differential Indicated SCAN CRITERIA MET
[2019-11-02 13:08] LABS: ALB/GLOB Ratio 0.8 RATIO (0.9-2.4); AST(SGOT) 13 U/L (15-37); Alanine Aminotransfer ALT/SGPT 30 U/L (13-56); Albumin, Serum 3.2 g/dL (3.2-5.0); Alkaline Phosphatase 96 U/L (45-117); Anion Gap 6 (5-15); BUN 11 mg/dL (7-18); BUN/Creat Ratio 18.5 RATIO (10-20); Chloride 104 mmol/L (98-107); Creatinine, Serum 0.59 mg/dL (0.55-1.02); EST Glomerular Filtration Rate 113 mL/min (>60); Est Glom Filt Rate - Afr Amer 137 mL/min (>60); Globulin 3.9 g/dL (2.2-4.2); Glucose 153 mg/dL (74-106); Potassium 3.7 mmol/L (3.5-5.1); Protein, Total 7.1 g/dL (6.4-8.2); Sodium Level 139 mmol/L (136-145)
[2019-11-02 14:04] LABS: Atypical Lymphocyte RARE %; Platelet Estimate ADEQUATE (ADEQ); Red Cell Morphology NORM C+C NORMAL (NORM C&C)
== END ==
PROVIDERS: PCP Family Medicine; Referring Provider Internal Medicine Rheumatology; Visit Provider Internal Medicine Rheumatology
DX: M06.09 Rheumatoid arthritis without rheumatoid factor, multiple sites (principal); Z79.899 Other long term (current) drug therapy; M79.7 Fibromyalgia; K21.9 Gastro-esophageal reflux disease without esophagitis; F41.9 Anxiety disorder, unspecified; F32.89 Other specified depressive episodes; I48.91 Unspecified atrial fibrillation; J45.909 Unspecified asthma, uncomplicated; I10 Essential (primary) hypertension; E78.5 Hyperlipidemia, unspecified; G47.33 Obstructive sleep apnea (adult) (pediatric)
CPT/HCPCS: 36415; 80053; 85025

== ENCOUNTER → 2019-12-26 11:27 | Outpatient (CLI) | payer BC, SELFPAY ==
--- NOTE | 2019-12-26 11:31 | RAD_ITS ---
STUDY: X-RAY - PELVIS AND RIGHT HIP REASON FOR EXAM: Female, 54 years old. PAIN. HX FALLS, RHEUMATOID ARTHRITIS TECHNIQUE: views of the pelvis and hip. COMPARISON: None. FINDINGS: There is a non-specific bowel gas pattern. Normal visualized soft tissue structures. Normal bilateral iliac wings, sacroiliac joints and visualized sacrum. Normal bilateral superior and inferior pubic rami. Normal pubic symphysis. Normal bilateral ischial tuberosities. Normal visualized femoral head. There is osteoarthritic spur formation of the acetabular rim. There is mild articular joint space narrowing of the hip. RAD/HIP, UNI W/ Pelvis 2-3 Views IMPRESSION: Mild degree of osteoarthritis with acetabular spur. Electronically Signed: Alfred Lassiter, at 15:47 EDT , Service support ,
== END ==
PROVIDERS: PCP Family Medicine; Referring Provider Anesthesiology Pain Medicine; Visit Provider Anesthesiology Pain Medicine
DX: M25.551 Pain in right hip (principal)
CPT/HCPCS: 73502

== ENCOUNTER → 2020-01-23 11:08 | Outpatient (CLI) | payer BC, SELFPAY ==
[2020-01-23 13:25] LABS: Amphetamine Urine VISTA NEGATIVE (<1000 ng/mL); Barbiturate Urine VISTA NEGATIVE (< 200 ng/mL); Benzodiazepine Urine VISTA NEGATIVE (< 200 ng/mL); Cocaine Urine VISTA NEGATIVE (< 300 ng/mL); Ecstacy Urine VISTA NEGATIVE (< 500 ng/mL); Methadone Urine VISTA NEGATIVE (< 300 ng/mL); PCP Urine VISTA NEGATIVE (< 25 ng/mL); THC Urine VISTA NEGATIVE (< 50 ng/mL); Vista UDS pH Range 6
== END ==
PROVIDERS: PCP Family Medicine; Referring Provider Anesthesiology Pain Medicine; Visit Provider Anesthesiology Pain Medicine
DX: F11.20 Opioid dependence, uncomplicated (principal)
CPT/HCPCS: 80307

== ENCOUNTER → 2020-12-11 10:16 | Outpatient (CLI) | payer BC, MEDICARE, SELFPAY ==
--- NOTE | 2020-12-11 10:31 | MRI_ITS ---
STUDY: MRI LUMBAR SPINE WITHOUT CONTRAST REASON FOR EXAM: Female, 55 years old. BACK PAIN LEG PAIN TECHNIQUE: Standardized fat and water weighted pulse sequences were obtained in the sagittal and axial planes. COMPARISON: 08/15/2014 FINDINGS: T12-L1: Normal endplates. Normal disc height, hydration and morphology. Normal bilateral facet joints. Normal central canal and bilateral lateral recesses. Normal bilateral intervertebral neural foramina. Normal lumbar lordosis. There is no substantial scoliosis. Normal conus medullaris that terminates at the level of T12/L1. Schmorl''s node at the T12 superior endplate. A few scattered vertebral body hemangiomas. L1-2: Normal endplates. Normal disc height, hydration and morphology. Normal bilateral facet joints. Normal central canal and bilateral lateral recesses. Normal bilateral intervertebral neural foramina. L2-3: Normal endplates. Normal disc height, hydration and morphology. Normal bilateral facet joints. Normal central canal and bilateral lateral recesses. Normal bilateral intervertebral neural foramina. L3-4: Normal endplates. Normal disc height, hydration and morphology. Normal bilateral facet joints. Normal central canal and bilateral lateral recesses. Normal bilateral intervertebral neural foramina. L4-5: Normal endplates. Mild disc bulge. Normal bilateral facet joints. Normal central canal and bilateral lateral recesses. Normal bilateral intervertebral neural foramina. L5-S1: Normal endplates. Mild disc bulge. Normal bilateral facet joints. Normal central canal and bilateral lateral recesses. Normal bilateral intervertebral neural foramina. Normal visualized sacral ala. Normal visualized paraspinous soft tissue structures. MRI/Spine Lumbar (Routine) IMPRESSION: Mild disc bulge at L4-5 and L5-S1 without significant spinal canal or neural foraminal stenosis. T12 superior endplate Schmorl''s node. Electronically Signed: Rafael Smith MD at 22:53 EDT Tel , Service support ,
== END ==
PROVIDERS: PCP Internal Medicine; Referring Provider Anesthesiology Pain Medicine; Visit Provider Anesthesiology Pain Medicine
DX: M54.9 Dorsalgia, unspecified (principal); M79.606 Pain in leg, unspecified
CPT/HCPCS: 72148

== ENCOUNTER 2021-07-15 11:21 | Outpatient (CLI) | payer BC, MEDICARE, SELFPAY ==
[2021-07-15 12:55] LABS: Amphetamine Urine VISTA NEGATIVE (<1000 ng/mL); Barbiturate Urine VISTA NEGATIVE (< 200 ng/mL); Benzodiazepine Urine VISTA NEGATIVE (< 200 ng/mL); Cocaine Urine VISTA NEGATIVE (< 300 ng/mL); Ecstacy Urine VISTA NEGATIVE (< 500 ng/mL); Methadone Urine VISTA NEGATIVE (< 300 ng/mL); PCP Urine VISTA NEGATIVE (< 25 ng/mL); THC Urine VISTA NEGATIVE (< 50 ng/mL); Vista UDS pH Range 5
== END 2021-07-15 23:59 | disposition home or self-care (01) ==
LOC: LAB 11:24
PROVIDERS: PCP Internal Medicine; Referring Provider Anesthesiology Pain Medicine; Visit Provider Anesthesiology Pain Medicine
DX: F11.20 Opioid dependence, uncomplicated (principal)
CPT/HCPCS: 80307

== ENCOUNTER → 2022-04-23 | Outpatient (CLI) | payer BC, MEDICARE, SELFPAY ==
--- NOTE | 2022-04-23 10:44 | NEURO ---
NCS and/or EMG Patient Report Ordering Doctor: Camden Austin DATE OF SERVICE: 04/23/22 Svitlana presents for electrodiagnostic testing of the left lower limb. She reports intermittent weakness, numbness and tingling in the left leg. She has intermittent lower back pain. Electrodiagnostic findings: Left peroneal motor nerve demonstrates normal distal latency, amplitude and conduction velocity. Normal left tibial motor response. Normal tibial and peroneal F waves on the left side. Normal H reflex bilaterally. Normal left superficial peroneal response. Mildly prolonged left sural latency. On needle EMG, all muscles tested in the left lower limb, as well as the left lumbar paraspinals, showed no evidence of denervation with normal motor unit action potentials. Electrodiagnostic impression: This is an abnormal study in the left lower limb. 1. 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 This is, however, unlikely to account for her symptoms. 2. No electrodiagnostic evidence is noted for lumbosacral radiculopathy.
== END | disposition home or self-care (01) ==
LOC: PSN 09:02
PROVIDERS: PCP Internal Medicine; Visit Provider Orthopaedic Surgery
DX: M48.061 Spinal stenosis, lumbar region without neurogenic claudication (principal); R20.2 Paresthesia of skin
CPT/HCPCS: 95886; 95909

== ENCOUNTER → 2022-08-14 | Outpatient (CLI) | payer BC, MEDICARE, SELFPAY ==
--- NOTE | 2022-08-14 | FLU_PTH ---
PATIENT: SHREYAS BRUMFIELD LOC: [facility]#:[id number] AGE/SX: 56/F ROOM: RE08/14/[address]: Dr. Lavelle Phan MD : 1965 BED: DIS: 08/14/2022 SPEC #: [id number] RECD: 08/14/22 16:56 STATUS: NIYAH REYareli #: [id number] JUSTYN: 08/14/22 00:[address]: Lavelle Phan DEPT: CYTOLOGY RECD BY: Sanju Davalos ENTERED: 08/15/22 09:48 SP TYPE: Fluid OTHR DR: Dr. Mary Jo Mccoy MD Tissues: A - Thyroid gland, NOS B - Thyroid gland, NOS Procedures: Special Stain Group II Surgery Specimen Level IV Cytospin Fluid HEADER OPERATION: Fine needle aspiration of inferior right thyroid PRE-OP DIAGNOSIS: Abnormal mammogram TISSUE SUBMITTED: A ? Inferior right thyroid FNA fluid, B - Inferior right thyroid FNA x12 slides DIAGNOSIS CYTOLOGY A. Right inferior thyroid nodule, fine needle aspiration (cytospin and cell block): Benign, consistent with benign follicular nodule with cystic change (Lewis Category II). The specimen is adequate for evaluation. See comment. B. Right inferior thyroid nodule, fine needle aspiration (smears): Benign, consistent with benign follicular nodule with cystic change (Lewis Category II). The specimen is adequate for evaluation. See comment. AM:mera 08/18/2022 COMMENT A & B. The Lewis System for thyroid diagnostic categorization was used in the evaluation of this case. CYTOLOGY STUDY Slides are reviewed. CYTOLOGY GROSS A - Received is 30 ml of red cloudy fluid labeled with the patient's name and and designated per the requisition as right thyroid. Submitted for cytology preparation including cell block. B - Received are 12 smears labeled with the patient's name and designated per the requisition as right thyroid. Submitted for staining. / mera 08/15/2022 TC:5 CPT: 19088 x2, 86725
== END | disposition home or self-care (01) ==
PROVIDERS: PCP Internal Medicine; Visit Provider Surgery
DX: R92.8 Other abnormal and inconclusive findings on diagnostic imaging of breast (principal)
CPT/HCPCS: 88108; 88305; 88313

== ENCOUNTER → 2023-04-01 | Outpatient (CLI) | payer BC, MEDICARE, SELFPAY ==
[2023-04-02 00:04] LABS: Amphetamine Urine VISTA NEGATIVE (<1000 ng/mL); Barbiturate Urine VISTA NEGATIVE (< 200 ng/mL); Benzodiazepine Urine VISTA NEGATIVE (< 200 ng/mL); Cocaine Urine VISTA NEGATIVE (< 300 ng/mL); Ecstacy Urine VISTA NEGATIVE (< 500 ng/mL); Methadone Urine VISTA NEGATIVE (< 300 ng/mL); PCP Urine VISTA NEGATIVE (< 25 ng/mL); THC Urine VISTA NEGATIVE (< 50 ng/mL); Vista UDS pH Range 5
== END | disposition home or self-care (01) ==
LOC: LAB 10:52
PROVIDERS: PCP Internal Medicine; Referring Provider Anesthesiology Pain Medicine; Visit Provider Anesthesiology Pain Medicine
DX: F11.20 Opioid dependence, uncomplicated (principal)
CPT/HCPCS: 80307

== ENCOUNTER 2023-06-25 10:43 | Emergency (ER) | payer BC, MEDICARE, SELFPAY ==
[2023-06-25 10:44] VITALS: BP 142/84; PULSE 71; RESP 18; TEMP 36.2; O2SAT 94
--- NOTE | 2023-06-25 11:11 | US_ITS ---
STUDY: ABDOMINAL ULTRASOUND - RIGHT UPPER QUADRANT REASON FOR VISIT: Female, 57 years old RUQ PAIN TECHNIQUE: Ultrasound evaluation of the right upper quadrant was performed with real-time and static harding-scale imaging. TECHNICAL QUALITY: Adequate. COMPARISON: None. FINDINGS: Liver: The liver measures 16.8 cm. There is increased echogenicity consistent with fatty infiltration. The bile ducts are within normal limits. There is hepatic color flow. The direction of portal flow is hepatopetal. There is no demonstrated mass lesion. Gallbladder: Normal distended gallbladder. The gallbladder wall measures 2.5 mm. There is a negative sonographic Odell''s sign. There is no pericholecystic fluid. There are no gallstones. Common Bile Duct (C.B.D.): The common bile duct measures mm. Pancreas: Normal size of the head of the pancreas. Body and tail obscured by overlying bowel gas. There is normal echogenicity of the pancreas. There is no demonstrated pancreatic mass or cyst. Right Kidney: Normal size of the right kidney. The right kidney measures 11 cm x 5.7 cm x 4.6 cm. Normal renal cortex. The right cortex measures 1.3 cm. There is a 1.2 cm x 1.5 cm x 1.2 cm renal cyst. There is also evidence of a 4 mm x 4 mm nonobstructive intrarenal calculus. There is no right hydronephrosis. US/Gallbladder IMPRESSION: Fatty infiltration of the liver. Right renal cyst. Nonobstructive 4 mm x 4 mm calculus in the right kidney. Electronically Signed: Alfred Lassiter MD at 12:56 EST ,
--- NOTE | 2023-06-25 11:12 | EDS_ITS ---
HPI <GEOFFREY Henning - Last Filed: 06/25/23 13:55> HPI - GI History of Present Illness Chief Complaint: Abd Pain Narrative Narrative: Patient presenting today due to right upper quadrant abdominal pain that she has had since yesterday. She reports that at first, the pain was intermittent and now is a constant sharp pain. It is worse with eating. She has had a few episodes of vomiting. She reports that she has had pain in her right upper quadrant in the past but never this severe. She had an appointment this morning with Dr. Rajan who encouraged she come into the ED for a ultrasound of her gallbladder. Previous abdominal surgeries include hysterectomy, appendectomy, and section. She denies fevers, chills, hematemesis, melena/hematochezia, diarrhea, and urinary symptoms. [facility] <GEOFFREY Henning - Last Filed: 06/25/23 13:55> [facility] Medical History (Updated 06/25/23 @ 13:50 by GEOFFREY Henning) Diabetes Fibromyalgia Hypertension Home Medications losartan 50 mg tablet 25 mg PO QHS 07/13/13 [History Last Taken 07/12/13] apixaban 5 mg tablet (Eliquis) 5 mg PO BID 12/16/17 [History Last Taken Unknown] lorazepam 1 mg tablet 1 mg PO PRN PRN Anxiety 12/16/17 [History Last Taken Unknown] pantoprazole 40 mg tablet,delayed release 40 mg PO DAILY 12/16/17 [History Last Taken Unknown] promethazine 25 mg tablet 25 mg PO Q6H PRN PRN Nausea 12/16/17 [History Last Taken Unknown] atorvastatin 80 mg tablet 80 mg PO DAILY 01/21/19 [History Last Taken Unknown] duloxetine 60 mg capsule,delayed release 60 mg PO DAILY 01/21/19 [History Last Taken Unknown] oxycodone-acetaminophen 7.5 mg-325 mg tablet 1 tab PO TID 01/21/19 [History Last Taken Unknown] promethazine 25 mg tablet 25 mg PO Q6H PRN PRN Nausea #15 tabs 01/21/19 [Rx Last Taken Unknown] baclofen 5 mg tablet 5 mg PO DAILY 01/11/21 [History Last Taken Unknown] gabapentin 300 mg capsule 300 mg PO DAILY 01/11/21 [History Last Taken Unknown] metoprolol succinate 50 mg tablet,extended release 24 hr 100 mg PO DAILY 01/11/21 [History Last Taken Unknown] multivitamin (Daily Multi-Vitamin tablet) 1 tab PO DAILY 01/11/21 [History Last Taken Unknown] oxycodone myristate 18 mg capsule sprinkle extended release 12hr(DON'T CRUSH) (Xtampza ER) 18 mg PO BID 01/11/21 [History Last Taken Unknown] ondansetron 4 mg disintegrating tablet 4 mg PO Q8H PRN PRN Nausea #10 tabs 06/25/23 [Rx Last Taken Unknown] Allergy/AdvReac Type Severity Reaction Status Date / Time latex Allergy Anaphylaxis Verified 06/25/23 10:44 metformin AdvReac Diarrhea Verified 06/25/23 10:44 Social History Smoking Status: Current every day smoker tobacco type: cigarettes ROS <GEOFFREY Henning - Last Filed: 06/25/23 13:55> ROS ED Constitutional Constitutional ED: Denies chills or fever(s) Cardiovascular Cardiovascular: Denies chest pain Respiratory/Chest Respiratory/Chest: Denies cough or dyspnea Gastrointestinal Gastrointestinal: Reports abdominal pain, nausea and vomiting; Denies constipation, diarrhea or melena Genitourinary Genitourinary ED: Denies dysuria, hematuria or urinary urgency Musculoskeletal Musculoskeletal: Denies arthralgias or myalgias Integumentary Denies rash Neurologic Neurologic: Denies weakness EXAM <GEOFFREY Henning - Last Filed: 06/25/23 13:55> Physical Exam Const Vital Signs: 06/25/23 10:44 06/25/23 12:31 Temperature 97.2 F L Temperature Source Temporal Pulse Rate 71 78 Respiratory Rate 18 18 Blood Pressure 142/84 H 140/78 H Blood Pressure Mean 103 98 Pulse Ox 94 99 Oxygen Delivery Method Room Air Room Air Positive well nourished, well developed and no apparent distress General Appearance ED: well developed HEENT Reports normocephalic and head/scalp atraumatic Mouth ED: Yes moist mucous membranes normal Eyes PERRL and EOMs intact bilaterally Neck full ROM and supple Chest Wall inspection of chest normal Resp normal respiratory effort and clear to auscultation bilaterally Cardio regular rate and regular rhythm GI soft to palpation, non-distended and no masses GI Narrative: Tenderness to the right upper quadrant, positive Odell sign, minimal guarding with palpation to the RUQ. No rigidity. Back/Spine normal ROM and normal to inspection Extremity normal to inspection and full ROM Neuro oriented x3, CN's II-XII intact bilaterally, moves all extremities, no focal motor deficits and no sensory deficits noted Sensorium / Orientation: awake and alert Psych mental status grossly normal and thought process normal Skin no rashes or lesions noted and no wounds <Dr. Terence Baig DO - Last Filed: 06/25/23 14:15> Physical Exam Const Vital Signs: 06/25/23 10:44 06/25/23 12:31 Temperature 97.2 F L Temperature Source Temporal Pulse Rate 71 78 Respiratory Rate 18 18 Blood Pressure 142/84 H 140/78 H Blood Pressure Mean 103 98 Pulse Ox 94 99 Oxygen Delivery Method Room Air Room Air MDM <GEOFFREY Henning - Last Filed: 06/25/23 13:55> [facility] Narrative Medical decision making narrative: Patient presenting due to right upper quadrant pain, nausea, and vomiting that started yesterday. She does have a positive Odell sign. Gallbladder ultrasound will be obtained. She will be given IV fluids, morphine, and Zofran for pain. Labs to be obtained to rule out leukocytosis, anemia, electrode abnormality, hepatobiliary etiology, and ADRIA. She does have nonspecific leukocytosis which is consistent with her previous labs, she reports that that and her abnormal H&H is why she is seeing Dr. Rajan. Right upper quadrant ultrasound shows a renal cyst and nonobstructive kidney stone, no cholecystitis or cholelithiasis. She reports that she has had intermittent right upper quadrant abdominal pain for the past 20 years and has had 2 HIDA scans performed in the past which both came back unremarkable. I encouraged that she follow-up with her PCP. She was given another dose of analgesia and on reexamination reports improvement of her symptoms. She will be discharged home in stable condition and is comfortable with plan. Lab Data Attestation: I reviewed the patient's lab results. Lab results narrative: WBC 14.6, H&H 16.2 and 48.6 Labs: Laboratory Results - last 24 hr 06/25/23 11:45 WBC 14.6 H RBC 5.43 H Hgb 16.2 H Hct 48.6 H MCV 89.5 MCH 29.8 MCHC 33.3 RDW Std Deviation 49.1 H RDW Coeff of Mike 14.8 H Plt Count 290 MPV 10.2 Immature Gran % (Auto) 0.500 Neut % (Auto) 52.1 Lymph % (Auto) 41.3 H [place] % (Auto) 5.1 Eos % (Auto) 0.7 Baso % (Auto) 0.3 Absolute Neuts (auto) 7.6 Absolute Lymphs (auto) 6.04 H Nucleated RBC % 0 Differential Comment SCANNED Sodium 140 Potassium 3.5 Chloride 108 H Carbon Dioxide 28.0 Anion Gap 4 L BUN 10 Creatinine 0.61 Estim Creat Clear Calc 112.36 Est GFR (MDRD) Af Amer 131 Est GFR (MDRD) Non-Af 108 BUN/Creatinine Ratio 16.4 Glucose 114 H Calcium 9.0 Total Bilirubin 0.40 AST 10 L ALT 21 Alkaline Phosphatase 110 Total Protein 6.9 Albumin 3.0 L Globulin 3.9 Albumin/Globulin Ratio 0.8 L Lipase 49 Radiography Diagnostic Testing: Clinical Impression(s) from Imaging Studies Gallbladder Ultrasound 06/25/23 11:11 IMPRESSION: Fatty infiltration of the liver. Right renal cyst. Nonobstructive 4 mm x 4 mm calculus in the right kidney. Electronically Signed: Alfred Lassiter MD at 12:56 EST , <Dr. Terence Baig, DO - Last Filed: 06/25/23 14:15> [facility] Lab Data Labs: Laboratory Results - last 24 hr 06/25/23 11:45 WBC 14.6 H RBC 5.43 H Hgb 16.2 H Hct 48.6 H MCV 89.5 MCH 29.8 MCHC 33.3 RDW Std Deviation 49.1 H RDW Coeff of Mike 14.8 H Plt Count 290 MPV 10.2 Immature Gran % (Auto) 0.500 Neut % (Auto) 52.1 Lymph % (Auto) 41.3 H [place] % (Auto) 5.1 Eos % (Auto) 0.7 Baso % (Auto) 0.3 Absolute Neuts (auto) 7.6 Absolute Lymphs (auto) 6.04 H Nucleated RBC % 0 Differential Comment SCANNED Sodium 140 Potassium 3.5 Chloride 108 H Carbon Dioxide 28.0 Anion Gap 4 L BUN 10 Creatinine 0.61 Estim Creat Clear Calc 112.36 Est GFR (MDRD) Af Amer 131 Est GFR (MDRD) Non-Af 108 BUN/Creatinine Ratio 16.4 Glucose 114 H Calcium 9.0 Total Bilirubin 0.40 AST 10 L ALT 21 Alkaline Phosphatase 110 Total Protein 6.9 Albumin 3.0 L Globulin 3.9 Albumin/Globulin Ratio 0.8 L Lipase 49 Radiography Diagnostic Testing: Clinical Impression(s) from Imaging Studies Gallbladder Ultrasound 06/25/23 11:11 IMPRESSION: Fatty infiltration of the liver. Right renal cyst. Nonobstructive 4 mm x 4 mm calculus in the right kidney. Electronically Signed: Alfred Lassiter MD at 12:56 EST , Treatment and Re-Evaluation :: I have personally performed a face to face assessment of the patient and have reviewed the TAMARA Note. I performed a substantive portion of the visit including all aspects of the following. My thomas findings include: History: Patient presents with abdominal pain that became worse today. Patient states she has had pain in her right flank that has been waxing and waning over the past several days. Patient states she saw Dr. Rajan today for workup for possible lymphoma. Patient states that when he pushed on her right upper abdomen, her pain became worse. Patient states it has been constant since that time today. Patient describes it as stabbing. Patient states the pain radiates around to her back. Patient denies any fevers or chills. Patient denies any nausea or vomiting. Exam: Vital signs are stable. Patient is afebrile. Patient is in no acute distress. Oral mucosa is pink and moist. Neck is supple. Trachea is midline. There is no JVD. Heart was regular rate and rhythm. Lungs are clear and equal bilaterally. Abdomen is soft. Bowel sounds are normal. There is right upper quadrant tenderness. There is no rebound or guarding noted. There is a positive Odell sign noted. Cranial nerves II through XII are intact. There are no focal motor or sensory deficits noted. Medical Decision Making: Differential diagnosis includes cholecystitis, cholelithiasis, pancreatitis, peptic ulcer disease, gastritis, urinary tract infection, and ureteral calculus. CBC will be obtained to assess for leukocytosis and anemia. Comprehensive metabolic profile will be obtained to assess for [place] function, renal function, and electrolyte abnormality. Lipase will be obtained to assess for pancreatitis. Urinalysis will be obtained to assess for urinary tract infection and hematuria. Gallbladder ultrasound will be obtained to assess for cholecystitis and cholelithiasis. Patient was given IV fluids, morphine, and Zofran here. CBC was reviewed. There is a leukocytosis of 14.6. This is consistent with prior results. Hemoglobin was 16.2 and hematocrit was 48.6. Platelets were normal. Comprehensive metabolic profile was reviewed and was essentially within normal limits. Lipase was reviewed and was normal. Right upper quadrant ultrasound was obtained. There is no evidence of cholecystitis or cholelithiasis. There is fatty infiltration of the liver. This was interpreted by the radiologist and was also independently reviewed by myself. Patient was given a repeat dose of morphine. Patient is feeling better on reevaluation. Patient was advised of her findings. Patient was instructed to follow-up with her primary care physician in 5 to 7 days. Patient understood and was agreeable with the plan. All questions were answered. Discharge Plan Triage Chief Complaint: Abd Pain ED Midlevel Provider: Veronica Bryant ED Provider: Terence Baig Dx/Rx/DC Orders Clinical Impression: Abdominal pain, Nausea & vomiting Instructions: ED Abdominal Pain Unkn Cause Fem Prescriptions: New ondansetron 4 mg tablet,disintegrating 4 mg PO Q8H PRN PRN (Reason: Nausea) Qty: 10 0RF No Action baclofen 5 mg tablet 5 mg PO DAILY multivitamin [Daily Multi-Vitamin] Tablet 1 tab PO DAILY Xtampza ER 18 mg cap,sprinkl,ER12hr(DONT CRUSH) 18 mg PO BID Rx Instructions: must administer with a meal/food gabapentin 300 mg capsule 300 mg PO DAILY losartan 50 MG tablet 25 mg PO QHS pantoprazole 40 MG tablet 40 mg PO DAILY promethazine 25 MG tablet 25 mg PO Q6H PRN PRN (Reason: Nausea) lorazepam 1 MG tablet 1 mg PO PRN PRN (Reason: Anxiety) apixaban [Eliquis] 5 MG tablet 5 mg PO BID atorvastatin 80 MG tablet 80 mg PO DAILY duloxetine 60 MG capsule,delayed release(DR/EC) 60 mg PO DAILY Patient Comments: TAKE 1 CAPSULE BY MOUTH EVERY DAY oxycodone-acetaminophen 7.5-325 tablet 1 tab PO TID promethazine 25 MG tablet 25 mg PO Q6H PRN PRN (Reason: Nausea) Qty: 15 0RF metoprolol succinate 50 mg tablet extended release 24 hr 100 mg PO DAILY Primary Care Provider: Mary Jo Mccoy Referrals: Mary Jo Mccoy MD [Primary Care Provider] - 3-5 Days Activity Restrictions/Additional Instructions: Follow-up with your PCP and return for any worsening of your symptoms. Disposition Disposition: Home, Self Care Discharge Date/Time: 06/25/23 14:09
[2023-06-25] MEDS: Morphine 4 MG/ML Syringe IV ×2 (11:37→13:26)
[2023-06-25] MEDS: Ondansetron 4 MG/2 ML Vial IV (11:37)
[2023-06-25] MEDS: 0.9% Normal Saline (1000mL) 1,000 ML 1000 ML IV (11:37)
[2023-06-25 11:41] VITALS: BMI 38.5
[2023-06-25 12:29] LABS: Absolute Lymphocyte Count 6.04 X10^3/uL (0.83-4.51); Absolute Neutrophil Count 7.6 X10^3/uL (2.0-7.7); Basophil# 0.04 X10^3/uL; Basophil% 0.3 % (0-1); Eosinophils% 0.7 % (0-5); Hematocrit 48.6 % (37-47); Hemoglobin 16.2 g/dL (12.0-15.0); Lymphocyte # 6.04 X10^3/ul (0.83-4.51); Lymphocyte % 41.3 % (19-41); Mean Corp Hgb Conc 33.3 g/dL (32-36); Mean Corpuscular Hgb 29.8 pg (27.0-32.0); Mean Corpuscular Volume 89.5 fL (81-99); Mean Platelet Vol. 10.2 fl (6.2-12.0); Monocyte# 0.74 X10^3/uL; Monocyte% 5.1 % (0-10); NRBC Flagged by Analyzer 0 % (0-5); Neutrophil # 7.64 X10^3/uL (2.7-7.7); Neutrophil % 52.1 % (47-70); POSITIVE DIFFERENTIAL YES; POSITIVE MORPHOLOGY YES; Platelet Count 290 K/mm3 (150-450); RBC Distribution Width CV 14.8 % (11.6-14.6); RBC Distribution Width SD 49.1 fl (35.1-43.9); Red Blood Count 5.43 M/mm3 (4.2-5.4); White Blood Count 14.6 K/mm3 (4.4-11.0)
[2023-06-25 12:31] VITALS: BP 140/78; PULSE 78; RESP 18; O2SAT 99
[2023-06-25 12:45] LABS: Differential Indicated SCAN CRITERIA MET
[2023-06-25 12:56] LABS: ALB/GLOB Ratio 0.8 RATIO (0.9-2.4); AST(SGOT) 10 U/L (15-37); Alanine Aminotransfer ALT/SGPT 21 U/L (13-56); Alkaline Phosphatase 110 U/L (45-117); Anion Gap 4 (5-15); BUN 10 mg/dL (7-18); BUN/Creat Ratio 16.4 RATIO (10-20); Chloride 108 mmol/L (98-107); Creatinine, Serum 0.61 mg/dL (0.55-1.02); EST Glomerular Filtration Rate 108 mL/min (>60); Est Glom Filt Rate - Afr Amer 131 mL/min (>60); Estimated Creatinine Clearance 112.36 ml/min; Globulin 3.9 g/dL (2.2-4.2); Glucose 114 mg/dL (74-106); Lipase 49 U/L (13-75); Potassium 3.5 mmol/L (3.5-5.1); Protein, Total 6.9 g/dL (6.4-8.2); Sodium Level 140 mmol/L (136-145)
[2023-06-25 13:09] LABS: Differential Comment SCANNED
== END 2023-06-25 14:09 | disposition home or self-care (01) ==
PROVIDERS: Physician Assistant; Emergency Provider Emergency Medicine; PCP Internal Medicine; Visit Provider Emergency Medicine
DX: R10.11 Right upper quadrant pain (principal); E11.9 Type 2 diabetes mellitus without complications; R11.2 Nausea with vomiting, unspecified; F17.210 Nicotine dependence, cigarettes, uncomplicated; Z90.710 Acquired absence of both cervix and uterus; Z90.49 Acquired absence of other specified parts of digestive tract; I10 Essential (primary) hypertension; Z79.899 Other long term (current) drug therapy
CPT/HCPCS: 76705; 80053; 83690; 85025; 96361; 96374; 96375; 96376; 99283; J7030; A4216; J2405

== ENCOUNTER → 2024-02-03 | Outpatient (CLI) | payer BC, MEDICARE, SELFPAY ==
[2024-02-03 11:24] LABS: Amphetamine Urine VISTA NEGATIVE (<1000 ng/mL); Barbiturate Urine VISTA NEGATIVE (< 200 ng/mL); Benzodiazepine Urine VISTA NEGATIVE (< 200 ng/mL); Cocaine Urine VISTA NEGATIVE (< 300 ng/mL); Ecstacy Urine VISTA NEGATIVE (< 500 ng/mL); Methadone Urine VISTA NEGATIVE (< 300 ng/mL); PCP Urine VISTA NEGATIVE (< 25 ng/mL); THC Urine VISTA NEGATIVE (< 50 ng/mL); Vista UDS pH Range 5
== END | disposition home or self-care (01) ==
PROVIDERS: PCP Internal Medicine; Referring Provider Anesthesiology Pain Medicine; Visit Provider Anesthesiology Pain Medicine
DX: F11.20 Opioid dependence, uncomplicated (principal)
CPT/HCPCS: 80307

== ENCOUNTER → 2024-07-20 | Outpatient (CLI) | payer BC, MEDICARE, SELFPAY ==
[2024-07-20 12:38] LABS: Amphetamine Urine NEGATIVE (<1000 ng/mL); Barbiturate Urine NEGATIVE (< 200 ng/mL); Benzodiazepine Urine NEGATIVE (< 200 ng/mL); Buprenorphine Urine NEGATIVE (< 200 ng/mL); Cocaine Urine NEGATIVE (< 300 ng/mL); Fentanyl, Urine NEGATIVE; Methadone Urine NEGATIVE (< 300 ng/mL); Opiates Urine NEGATIVE (< 300 ng/mL); Oxycodone, Urine PRESUMPTIVE POSITIVE (< 100 ng/mL); PCP Urine NEGATIVE (< 25 ng/mL); THC Urine NEGATIVE (< 50 ng/mL)
== END | disposition home or self-care (01) ==
PROVIDERS: PCP Internal Medicine; Referring Provider Anesthesiology Pain Medicine; Visit Provider Anesthesiology Pain Medicine
DX: F11.20 Opioid dependence, uncomplicated (principal)
CPT/HCPCS: 80307

== ENCOUNTER → 2025-01-11 | Outpatient (CLI) | payer MEDICARE, SELFPAY ==
[2025-01-11 20:58] LABS: Barbiturate Urine NEGATIVE (< 200 ng/mL); Benzodiazepine Urine NEGATIVE (< 200 ng/mL); PCP Urine NEGATIVE (< 25 ng/mL); THC Urine NEGATIVE (< 50 ng/mL)
== END | disposition home or self-care (01) ==
LOC: LAB 17:05
PROVIDERS: PCP Internal Medicine; Referring Provider Anesthesiology Pain Medicine; Visit Provider Anesthesiology Pain Medicine
DX: F11.20 Opioid dependence, uncomplicated (principal)
CPT/HCPCS: 80307